=== PATIENT | female | born 1990 | race American Indian/Alaskan Native ===

== ENCOUNTER 2021-01-31 19:03 | Outpatient (CLI) | payer MEDICAID ==
[2021-01-31] MEDS ORDERED: LACTATED RINGERS 0 ML ONE (19:29)
[2021-01-31] MEDS ORDERED: SODIUM CHLORIDE 0.9% 1000 ML 1,000 ML IV SCH (19:45)
[2021-01-31] MEDS ORDERED: ACETAMINOPHEN 500 MG TAB PO ONE (20:10)
[2021-01-31] MEDS ORDERED: ACETAMINOPHEN 500 MG TAB ONE (20:13)
[2021-01-31 20:16] LABS: Bilirubin,Urine NEG (Negative); Blood,Urine NEG (Negative); Color,Urine Amber (Yellow); Mucus,Urine 2+ /HPF
[2021-01-31 20:22] LABS: Amphetamine Screen,Urine Negative; Benzodiazepines Screen,Urine Negative; Cannabinoid Screen,Urine Negative; Cocaine Screen,Urine Negative; Methadone Screen,Urine Negative; Opiate Screen,Urine Negative
--- NOTE | 2021-01-31 21:04 | Ultrasound Report ---
US OB limited, US OB BPP wo non-stress INDICATION: check for abruption, placenta placement. TECHNIQUE: Transabdominal. COMPARISON: None available. FINDINGS: There is a single intrauterine . Heart Rate: 170 beats per minute. Position: breech. Amniotic Fluid Volume: normal Amniotic Fluid Index (SAUMYA) in cm (if calculated): 12. Cervical length: 4.3cm Placenta: Posterior, grade 0 Biophysical Profile: breathing movements: 2 movements:2 posture and tone:2 Qualitative amniotic fluid volume: 2 IMPRESSION: 1. No abruption. Amniotic fluid is normal. Biophysical profile is 8 of 8 Signer Name: Oscar Arnett MD Signed: 01/31/2021 8:59 PM Workstation Name: [id number]
[2021-01-31 21:44] LABS: Basophils % (Auto) 0.3 % (0.0-1.8); Hematocrit 29.5 % (30.3-42.9); Hemoglobin 9.4 gm/dl (10.1-14.3); Lymphocytes # (Auto) 0.9 K/mm3 (1.2-5.4); Mean Corpuscular HGB Conc 32 % (30-34); Mean Corpuscular Volume 71 fl (79-97); Monocytes % (Auto) 5.8 % (0.0-7.3); Platelet Count 327 K/mm3 (140-440); Red Blood Count 4.18 M/mm3 (3.65-5.03); Red Cell Distribution Width 17.9 % (13.2-15.2)
[2021-01-31 22:06] LABS: Alanine Aminotransferase 12 units/L (7-56); Albumin 2.8 g/dL (3.9-5); Blood Urea Nitrogen 5 mg/dL (7-17); Calcium 7.8 mg/dL (8.4-10.2); Hemolysis Index 10
[2021-01-31] MEDS ORDERED: ONDANSETRON 4 MG/2 ML INJ IV PRN (22:09)
[2021-01-31] MEDS ORDERED: cefTRIAXone/NS 1 GM/50 ML 1 GM/50 ML BAG IV ONE (22:12)
[2021-01-31] MEDS ORDERED: diphenhydrAMINE 25 MG CAP PO ONE (22:13)
[2021-01-31 22:15] LABS: BUN/Creatinine Ratio 10
[2021-02-01] MEDS ORDERED: metroNIDAZOLE 500 MG TAB ONE (05:29)
[2021-02-01 07:08] VITALS: BP 95/50
== END 2021-02-01 06:17 | disposition home or self-care (01) ==
LOC: TRG 19:03 → APU 19:04 → LD 23:51 → TRG 23:51 → UNDOADMOB 23:51 → TRG 02-01 06:17 → UNDODISOB 02-01 09:00
PROVIDERS: ATTEND Obstetrics & Gynecology
DX: O26.892 Other specified pregnancy related conditions, second trimester (principal); R10.9 Unspecified abdominal pain; Z3A.26 26 weeks gestation of pregnancy
CPT/HCPCS: 36415; 59025; 76815; 76819; 80053; 80307; 81001; 85025; 87086; 96365; J0696; J2405; 96361; G0378